=== PATIENT | female | born 1995 | race Caucasian/White ===

== ENCOUNTER 2017-04-10 18:45 | Emergency (ER) | payer SELFPAY ==
--- NOTE | 2017-04-10 19:07 | ERNOTE ---
<Johann Dowling - Last Filed: 04/10/17 19:55> Abdominal HPI - General Chief Complaint: Abdominal Pain Time Seen by Provider: 04/10/17 18:57 Source: patient, family Exam Limitations: no limitations - Immun/Allergies/Home Medications Immunizatons: IMMUNIZATION HX Immunizations Up to Date Yes Allergies/Adverse Reactions: Allergies risperidone [From Risperdal] Allergy (Verified 04/10/17 18:50) Home Medications: HOME MEDICATIONS Vit No.130/Iron/FA [ Tablet] 1 tab PO DAILY 04/10/17 [Last Taken Unknown] valACYclovir HCL [Valtrex] 500 mg PO DAILY 04/10/17 [Last Taken Unknown] - History of Present Illness Narrative: Patient presents with pelvic pain and is approximately 19 weeks . Patient was seen at [facility] today as they do not have ultrasound capability patient was sent here for ultrasound evaluation. She rates her pain is no more than moderate in severity and somewhat crampy in nature. Patient had a pelvic examination [place] as well as laboratory and urinalysis all which were unremarkable. According to the patient there is no vaginal bleeding or discharge present. Timing: constant Quality: moderate Activities at Onset: none Associated Symptoms: Present: denies symptoms Prior Abdominal Problems: Present: none Prior Treatment: Present: recently seen, treated by physician Review of Systems - Review of Systems Constitutional: Present: See HPI EYE: Present: no symptoms reported ENT: Present: no symptoms reported Respiratory: Present: no symptoms reported Cardiology: Present: no symptoms reported Gastrointestinal/Abdominal: Present: no symptoms reported Genitourinary: Present: pain Musculoskeletal: Present: no symptoms reported Skin: Present: no symptoms reported Neurological: Present: no symptoms reported Endocrine: Present: no symptoms reported Hematologic/Lymphatic: Present: no symptoms reported Psych: Present: no symptoms reported - Patient's Past Medical History Patient History - Medical: No pertinent hx, Other - patient is 2 para 0 she had one miscarriage and she is currently 19 weeks Patient History - Cardiac/Respiratory: No pertinent hx Patient History - Cancer: No Hx of Cancer Patient History - Surgical Procedures: Appendectomy Patient History - Other: None LMP (females 10-50): - Social History Living Situations: home Abuse History: No History of abuse Psych History: No pertinent hx Smoking Status: Current every day smoker Have you smoked in the past 12 months: Yes Do you dip or chew tobacco: No Patient requests Smoking Cessation Consult: No Initiate information on Smoking Cessation: No Alcohol Use: none Drug Use: none - Immunizations Immunizations Up to Date: Yes Physical Exam - Physical Exam General Appearance: Present: wd/wn, alert, mild distress Head Exam: Present: normal inspection Eye Exam: Normal inspection: bilateral, PERRL: bilateral Ears, Nose, Throat: Present: normal ENT inspection, normal pharynx Neck: Present: normal inspection, nontender Respiratory: Present: no respiratory distress, normal breath sounds, no accessory muscle use, chest nontender, lungs clear Cardiovascular/Chest: Present: regular rate, rhythm, no murmur, normal peripheral pulses Gastrointestinal/Abdominal: Present: normal bowel sounds, nondistended, soft, no organomegaly, tenderness - suprapubic Rectal Exam: Present: deferred Pelvic Exam: Present: other - patient underwent a complete pelvic examination and kicked back and the cervical os appeared to be closed and no vaginal bleeding was present. Back Exam: Present: normal inspection, normal range of motion Extremity Exam: Present: normal inspection, non-tender, no edema, normal range of motion Neurological Exam: Present: alert, oriented, normal mood/affect Skin Exam: Present: normal color, warm/dry Lymphatic Exam: Present: no adenopathy ED Progress - Vital Signs Vital Signs: Vital Signs 04/10/17 18:51 Temperature 36.4 C L Pulse Rate 79 Respiratory 16 Rate Blood Pressure 125/68 O2 Sat by Pulse 100 Oximetry - Progress/Reassessment Chief Complaint: Abdominal Pain - Transfer of Care Physician Sign Out: Johann Dowling Receiving Physician: Derian Estrada Departure - Departure Clinical Impression: Round ligament pain Qualifiers: Weeks of gestation: 19 weeks Qualified Code(s): Z3A.19 - 19 weeks gestation of Disposition: Home self-care Condition: Good Instructions: Round Ligament Pain Additional Instructions: See your OB for follow up <Derian Estrada - Last Filed: 04/11/17 05:18> Abdominal HPI - Immun/Allergies/Home Medications Immunizatons: IMMUNIZATION HX Immunizations Up to Date Yes ED Progress - Vital Signs Vital Signs: Vital Signs 04/10/17 04/10/17 18:51 19:55 Temperature 36.4 C L Pulse Rate 79 74 Respiratory 16 16 Rate Blood Pressure 125/68 118/73 O2 Sat by Pulse 100 100 Oximetry - CT/Ultrasound CT/Ultrasound Narrative: U/S pelvis - biophysical profile. FINDINGS/IMPRESSION: The fetus is in cephalic position. The placenta is anterior and uniformly echogenic. There is no placenta previa. The cervical length is normal at 3.9 cm. heart tones measured 149 bpm. Electronically signed by Cheryl Em D.O.. - Progress/Reassessment Progress Note-Subjective: discussed normal U/S with patient and that her discomfort may be round ligament pain. Pt expressed understanding.
[2017-04-10 20:43] VITALS: BP 116/69
== END 2017-04-10 20:42 | disposition home or self-care (01) ==
LOC: ER 18:45
DX: R10.2 Pelvic and perineal pain (principal); Z3A.19 19 weeks gestation of pregnancy; Z33.1 Pregnant state, incidental; F17.200 Nicotine dependence, unspecified, uncomplicated